=== PATIENT | female | born 1990 | race Caucasian/White ===

== ENCOUNTER 2024-01-13 17:17 | Emergency (ER) | payer OTHER ==
[~2024-01-13] VITALS: Ht 160 cm; Wt 81.2 kg
[2024-01-13 17:48] VITALS: BP 141/85; PULSE 88; RESP 18; TEMP 97.6; O2SAT 99
[2024-01-13] MEDS ORDERED: ACET-10509 PO (18:02)
[2024-01-13] MEDS ORDERED: AMOX500C25 PO (18:02)
[2024-01-13 18:11] VITALS: BP 135/82; PULSE 77; RESP 16; TEMP 98; O2SAT 99
== END 2024-01-13 18:11 | disposition home or self-care (01) ==
LOC: MED 17:17
DX: H66.92 Otitis media, unspecified, left ear (principal)
CPT/HCPCS: 99283